=== PATIENT | male | born 1955 | race Caucasian/White ===

== ENCOUNTER → 2017-12-29 | Outpatient (CLI) | payer MEDICARE ==
--- NOTE | 2017-12-29 11:51 | RADIOLOGY REPORT (SQ) ---
EXAM DESCRIPTION: CT ABD/PELVIS WITH IV ONLY COMPLETED DATE/TIME: 12/29/2017 11:26 am REASON FOR STUDY: R10.12 LEFT UPPER QUADRANT PAIN R10.12 LEFT UPPER QUADRANT PAIN COMPARISON: Two-view chest 11/23/2014 TECHNIQUE: CT scan of the abdomen and pelvis performed using helical scanning technique with dynamic intravenous contrast injection. No oral contrast. Images reviewed with lung, soft tissue, and bone windows. Reconstructed coronal and sagittal MPR images reviewed. Delayed images for evaluation of the urinary system also acquired. All images stored on PACS. All CT scanners at this facility use dose modulation, iterative reconstruction, and/or weight based d osing when appropriate to reduce radiation dose to as low as reasonably achievable (ALARA). [facility]: Dose Right [facility]: CareDose [facility]: Dose Right [facility]: Teradose 4D [facility]: WebLayers CONTRAST TYPE AND DOSE: contrast/concentration: Isovue 370.00 mg/ml; Total Contrast Delivered: 100.0 ml; Total Saline Delivered: 72.0 ml RENAL FUNCTION: Creatinine 1.1 RADIATION DOSE: CT Rad equipment meets quality standard of care and radiation dose reduction techniq ues were employed. CTDIvol: NaN - NaN mGy. DLP: 0 mGy-cm.. LIMITATIONS: None. FINDINGS: LOWER CHEST: No significant findings. No nodules or infiltrates. LIVER: Normal size. No masses. No dilated ducts. SPLEEN: Normal size. No focal lesions. PANCREAS: No masses. No significant calcifications. No adjacent inflammation or peripancreatic fluid collections. Pancreatic duct not dilated. GALLBLADDER: No identified stones by CT criteria. No inflammatory changes to suggest cholecystitis. ADRENAL GLANDS: No significant masses or asymmetry. RIGHT KIDNEY AND URETER: No solid masses. No significant calcifications. No hydronephrosis or hyd roureter. LEFT KIDNEY AND URETER: No solid masses. No significant calcifications. No hydronephrosis or hydr oureter. AORTA AND VESSELS: No aneurysm. No dissection. Renal arteries, SMA, celiac without stenosis. RETROPERITONEUM: No retroperitoneal adenopathy, hemorrhage or masses. BOWEL AND PERITONEAL CAVITY: No masses or inflammatory changes. No free fluid or peritoneal masses. APPENDIX: Normal. PELVIS: No mass. No free fluid. Normal bladder. ABDOMINAL WALL: Fat containing bilateral inguinal hernias. BONES: No significant or acute findings. OTHER: No other significant finding. IMPRESSION: NO SIGNIFICANT OR ACUTE FINDING IN THE ABDOMEN OR PELVIS ON CT SCAN WITH IV CONTRAST. TECHNICAL DOCUMENTATION: JOB ID: [id number] Quality ID # [id number]: Final reports with documentation of one or more dose reduction techniques (e.g., Au tomated exposure control, adjustment of the mA and/or kV according to patient size, use of iterative reconstruction technique) 2010 [employer]- All Rights Reserved Reading location - IP/workstation name: [email or web address]
== END ==
LOC: RAD 11:07
PROVIDERS: ATTEND Family Medicine
DX: R10.12 Left upper quadrant pain (principal)
CPT/HCPCS: 74177; 82565

== ENCOUNTER 2018-01-13 09:19 | Emergency (ER) | payer MEDICARE ==
[2018-01-13] MEDS ORDERED: ONDANSETRON HCL INJ/PF 4 MG/2 ML SDV IV ONE (09:41)
[2018-01-13] MEDS ORDERED: FENTANYL CITRATE INJ/PF 100 MCG/2 ML AMPUL IV ONE (09:41)
--- NOTE | 2018-01-13 09:43 | ER Document Report ---
ED Medical Screen (RME) - General Chief Complaint: Abdominal Pain Stated Complaint: STOMACH PAIN Time Seen by Provider: 01/13/18 09:39 Mode of Arrival: Wheelchair Information source: Patient, Dr. Office Notes: 62-year-old male presents with complaints of right upper quadrant abdominal pain 3 week duration. Patient was seen by his primary care physician last week sent for CAT scan which noted no acute abnormality. Patient notes pain is worsened I have greeted and performed a rapid initial assessment of this patient. A comprehensive ED assessment and evaluation of the patient, analysis of test results and completion of the medical decision making process will be conducted by additional ED providers. PHYSICAL EXAMINATION: GENERAL: Well-appearing, well-nourished and in no acute distress. HEAD: Atraumatic, normocephalic. EYES: Pupils equal round extraocular movements intact, conjunctiva are normal. ENT: Nares patent NECK: Normal range of motion LUNGS: No respiratory distress Abdomen: Tender in the right upper quadrant with guarding Musculoskeletal: Normal range of motion NEUROLOGICAL: Normal speech, normal gait. PSYCH: Normal mood, normal affect. SKIN: Warm, Dry, normal turgor, no rashes or lesions noted. TRAVEL OUTSIDE OF THE [place] IN LAST 30 DAYS: No - Related Data Allergies/Adverse Reactions: No Known Allergies Allergy (Verified 01/13/18 09:22) Past Medical History - Past Medical History Cardiac Medical History: Reports: Hx Coronary Artery Disease, Hx Hypercholesterolemia, Hx Hypertension - medicated Denies: Hx Atrial Fibrillation, Hx Congestive Heart Failure, Hx Heart Attack , Hx Peripheral Vascular Disease, Hx Heart Murmur Pulmonary Medical History: Denies: Hx Asthma, Hx Tuberculosis Neurological Medical History: Denies: Hx Cerebrovascular Accident, Hx Seizures Endocrine Medical History: Reports: Hx Diabetes Mellitus Type 2 GI Medical History: Denies: Hx Hepatitis, Hx Hiatal Hernia, Hx Ulcer Musculoskeltal Medical History: Denies Hx Multiple Sclerosis Psychiatric Medical History: Reports: Hx Bipolar Disorder, Hx Depression Denies: Hx Dementia, Hx Post Traumatic Stress Disorder, Hx Schizophrenia Infectious Medical History: Denies: Hx Hepatitis Past Surgical History: Denies: Hx Appendectomy, Hx Bowel Surgery, Hx Cholecystectomy, Hx Coronary Artery Bypass Graft, Hx Gastric Bypass Surgery, Hx Herniorrhaphy, Hx Open Heart Surgery, Hx Pacemaker, Hx Tonsillectomy - Immunizations Hx Diphtheria, Pertussis, Tetanus Vaccination: Yes Physical Exam - Vital signs Vitals: Temp Pulse Resp BP Pulse Ox 96.9 F L 81 22 H 154/67 H 94 01/13/18 09:27 01/13/18 09:27 01/13/18 09:27 01/13/18 09:27 01/13/18 09:27 Course - Vital Signs Vital signs: Temp Pulse Resp BP Pulse Ox 96.9 F L 81 22 H 154/67 H 94 01/13/18 09:27 01/13/18 09:27 01/13/18 09:27 01/13/18 09:27 01/13/18 09:27
[2018-01-13 10:44] LABS: ABSOLUTE BASOPHILS # (AUTO) 0.1 10^3/uL (0.0-0.2); ABSOLUTE EOSINOPHILS # (AUTO) 0.5 10^3/uL (0.0-0.6); ABSOLUTE LYMPHOCYTES (AUTO) 1.7 10^3/uL (0.5-4.7); ABSOLUTE NEUT (AUTO) 9.7 10^3/uL (1.7-8.2); BASOPHILS % (AUTO) 0.6 % (0-2); HEMATOCRIT 46.4 % (37.9-51.0); HEMOGLOBIN 15.4 g/dL (13.5-17.0); LYMPHOCYTES % (AUTO) 13.4 % (13-45); MEAN CORPUSCULAR HGB CONC 33.1 g/dL (32.0-36.0); MEAN CORPUSCULAR VOLUME 97 fl (80-97); MONOCYTES % (AUTO) 7.7 % (3-13); PLATELET COUNT 228 10^3/uL (150-450); RED CELL DISTRIBUTION WIDTH 13.1 % (11.5-14.0); SEGMENTED NEUTROPHILS % (AUTO) 74.3 % (42-78); TOTAL CELLS COUNTED % (AUTO) 100 %; WHITE BLOOD COUNT 13.1 10^3/uL (4.0-10.5)
[2018-01-13 11:03] LABS: ALANINE AMINOTRANSFERASE 97 U/L (21-72); ALBUMIN 4.5 g/dL (3.5-5.0); ALKALINE PHOSPHATASE 124 U/L (38-126); ANION GAP 10 (5-19); ASPARTATE AMINO TRANSFERASE 68 U/L (17-59); BILIRUBIN,DIRECT 0.5 mg/dL (0.0-0.4); BILIRUBIN,TOTAL 0.6 mg/dL (0.2-1.3); BLOOD UREA NITROGEN 27 mg/dL (7-20); CALCIUM 9.7 mg/dL (8.4-10.2); CARBON DIOXIDE 27 mmol/L (22-30); CHLORIDE 104 mmol/L (98-107); GLUCOSE 209 mg/dL (75-110); LIPASE 148.3 U/L (23-300); POTASSIUM 4.7 mmol/L (3.6-5.0); SODIUM 141.3 mmol/L (137-145); TOTAL PROTEIN 7.9 g/dL (6.3-8.2)
--- NOTE | 2018-01-13 11:04 | ER Document Report ---
ED General - General Chief Complaint: Abdominal Pain Stated Complaint: STOMACH PAIN Time Seen by Provider: 01/13/18 09:39 Mode of Arrival: Wheelchair Notes: 62-year-old male to emergency department chief complaint of right upper quadrant abdominal pain. Patient states pain is been present for approximately [address] scan of the abdomen and pelvis at the end of December. Reportedly unremarkable. Continues to have worsening pain in the right upper quadrant. Worse with eating. Denies any rash. No fever, chills, sweats. Does have intermittent constipation. No vomiting or diarrhea. TRAVEL OUTSIDE OF THE [place] IN LAST 30 DAYS: No - HPI Onset/Duration: Gradual Quality of pain: Cramping Severity: Moderate Pain Level: 3 Associated symptoms: Nausea Exacerbated by: Food Relieved by: Denies - Related Data Allergies/Adverse Reactions: No Known Allergies Allergy (Verified 01/13/18 09:22) Past Medical History - General Information source: Patient, Office - Social History Smoking Status: Never Smoker Chew tobacco use (# tins/day): No Frequency of alcohol use: None Drug Abuse: None Lives with: Family Family History: Reviewed & Not Pertinent Patient has suicidal ideation: No Patient has homicidal ideation: No - Past Medical History Cardiac Medical History: Reports: Hx Coronary Artery Disease, Hx Hypercholesterolemia, Hx Hypertension - medicated Denies: Hx Atrial Fibrillation, Hx Congestive Heart Failure, Hx Heart Attack , Hx Peripheral Vascular Disease, Hx Heart Murmur Pulmonary Medical History: Denies: Hx Asthma, Hx Tuberculosis Neurological Medical History: Denies: Hx Cerebrovascular Accident, Hx Seizures Endocrine Medical History: Reports: Hx Diabetes Mellitus Type 2 Renal/ Medical History: Denies: Hx Peritoneal Dialysis GI Medical History: Denies: Hx Hepatitis, Hx Hiatal Hernia, Hx Ulcer Musculoskeltal Medical History: Denies Hx Multiple Sclerosis Psychiatric Medical History: Reports: Hx Bipolar Disorder, Hx Depression Denies: Hx Dementia, Hx Post Traumatic Stress Disorder, Hx Schizophrenia Infectious Medical History: Denies: Hx Hepatitis Past Surgical History: Denies: Hx Appendectomy, Hx Bowel Surgery, Hx Cholecystectomy, Hx Coronary Artery Bypass Graft, Hx Gastric Bypass Surgery, Hx Herniorrhaphy, Hx Open Heart Surgery, Hx Pacemaker, Hx Tonsillectomy - Immunizations Hx Diphtheria, Pertussis, Tetanus Vaccination: Yes Hx Pneumococcal Vaccination: 05/29/13 Review of Systems - Review of Systems Constitutional: denies: Fever, Malaise, Weakness EENT: denies: Double vision, Throat pain, Mouth pain Cardiovascular: denies: Chest pain, Palpitations, Heart racing Respiratory: denies: Cough, Hurts to breathe, Short of breath, Wheezing Gastrointestinal: Abdominal pain, Nausea, Constipation. denies: Diarrhea Male Genitourinary: denies: Testicular pain, Penile discharge Musculoskeletal: denies: Back pain, Gout, Joint pain, Joint swelling Skin: denies: Dryness, Lumps, Rash Hematologic/Lymphatic: denies: Anemia, Blood clots, Easy bleeding, Easy bruising Neurological/Psychological: denies: Confusion, Weakness, Numbness Physical Exam - Vital signs Vitals: Temp Pulse Resp BP Pulse Ox 96.9 F L 81 22 H 154/67 H 94 01/13/18 09:27 01/13/18 09:27 01/13/18 09:27 01/13/18 09:27 01/13/18 09:27 Interpretation: Normal - General General appearance: Appears well, Alert - HEENT Head: Normocephalic, Atraumatic Eyes: Normal Pupils: PERRL - Respiratory Respiratory status: No respiratory distress Chest status: Nontender Breath sounds: Normal Chest palpation: Normal - Cardiovascular Rhythm: Regular Heart sounds: Normal auscultation Murmur: No - Abdominal Inspection: Normal Distension: No distension Bowel sounds: Normal Tenderness: Tender, Newell's sign, Guarding Organomegaly: No organomegaly - Back Back: Normal, Nontender - Extremities General upper extremity: Normal inspection, Nontender, Normal color, Normal ROM , Normal temperature General lower extremity: Normal inspection, Nontender, Normal color, Normal ROM , Normal temperature, Normal weight bearing. No: Pratima's sign - Neurological Neuro grossly intact: Yes Cognition: Normal Orientation: AAOx4 Cando Coma Scale Eye Opening: Spontaneous Cando Coma Scale Verbal: Oriented Cando Coma Scale Motor: Obeys Commands Joaquin Coma Scale Total: 15 Speech: Normal Motor strength normal: LUE, RUE, LLE, RLE Sensory: Normal - Psychological Associated symptoms: Normal affect, Normal mood - Skin Skin Temperature: Warm Skin Moisture: Dry Skin Color: Normal Course - Re-evaluation Re-evalutation: 01/13/18 11:24 Gallbladder ultrasound shows gallstones with no significant signs of acute cholecystitis. Patient is exquisitely tender in the right upper quadrant. Consulted with Dr. Taveras with general surgery. Recommends getting a HIDA scan. Will see patient in the ER as well. 01/13/18 15:04 Hepatobiliary study unremarkable. Asking Dr. Taveras to come see patient as he is still quite tender in the right upper quadrant. 01/13/18 15:53 Patient wants to go home. Will follow up with Dr. Taveras tomorrow. Likely biliary colic. Giving some lactulose at this time. We will give recommendations for some MiraLAX as an outpatient in a couple more days of lactulose. Return if symptoms get worse. She knows that in the next 12-24 hours things get worse. If he develops fever, worsening symptoms he should return - Vital Signs Vital signs: Temp Pulse Resp BP Pulse Ox 96.9 F L 81 22 H 154/67 H 94 01/13/18 09:27 01/13/18 09:27 01/13/18 09:27 01/13/18 09:27 01/13/18 09:27 - Laboratory Result Diagrams: 01/13/18 10:00 01/13/18 10:00 Laboratory results interpreted by me: 01/13/18 01/13/18 10:00 10:00 WBC 13.1 H Absolute Neutrophils 9.7 H BUN 27 H Glucose 209 H Direct Bilirubin 0.5 H AST 68 H ALT 97 H Discharge - Discharge Clinical Impression: Right upper quadrant abdominal pain, Colic, biliary Condition: Good Disposition: HOME, SELF-CARE Instructions: Abdominal Pain ([facility]), Gallbladder Disease ([facility]), Bulk Laxatives, Antinausea Medication ([facility]) Additional Instructions: Symptoms are getting worse in the next 12-24 hours return immediately for repeat exam. Prescriptions: Ondansetron [Zofran Odt] 4 mg PO QID 5 Days #10 tab.rapdis Polyethylene Glycol 3350 [Miralax] 119 gm PO BID 7 Days #1 bot Referrals: RADHA TAVERAS MD [MAGAN HUERTA] - Follow up as needed
--- NOTE | 2018-01-13 11:15 | RADIOLOGY REPORT (SQ) ---
EXAM DESCRIPTION: U/S ABDOMEN LIMITED W/O DOP COMPLETED DATE/TIME: 01/13/2018 11:05 am REASON FOR STUDY: RUQ pain COMPARISON: None. TECHNIQUE: Dynamic and static grayscale images acquired of the right upper quadrant and recorded on PACS. Additional selected color Doppler and spectral images recorded. LIMITATIONS: Study limited due to acoustical interference from fat or from air in the bowel. FINDINGS: PANCREAS: Parts of the pancreas poorly seen secondary to acoustical interference from fat or from air in the bowel. LIVER: Echotexture is coarse with increased echogenicity consistent with fatty infiltration. No mass es. LIVER VASCULATURE: Normal directional flow of the main portal vein and hepatic veins. GALLBLADDER: Gallstone(s). No pericholecystic fluid. No wall thickening. ULTRASOUND-DETECTED SHRESTHA'S SIGN: Negative. INTRAHEPATIC DUCTS AND COMMON DUCT: CBD and intrahepatic ducts normal caliber. No filling defects. INFERIOR VENA CAVA: Normal flow. AORTA: No aneurysm. RIGHT KIDNEY: Normal size. Normal echogenicity. No solid or suspicious masses. No hydronephrosis. No calcifications. PERITONEAL CAVITY AND RIGHT PLEURAL SPACE: No ascites or effusions. OTHER: No other significant finding. IMPRESSION: 1. LIMITED STUDY. GALLSTONES. NO ACUTE FINDINGS. 2. FATTY LIVER. PANCREAS PARTIALLY OBSCURED. OTHERWISE NORMAL RIGHT UPPER QUADRANT ULTRASOUND. TECHNICAL DOCUMENTATION: JOB ID: [id number]- All Rights Reserved Reading location - IP/workstation name: [facility]
--- NOTE | 2018-01-13 14:57 | RADIOLOGY REPORT (SQ) ---
EXAM DESCRIPTION: NM HIDA SCAN COMPLETED DATE/TIME: 01/13/2018 2:47 pm REASON FOR STUDY: RUQ pain, hx of gallstones COMPARISON: Gallbladder ultrasound dated 01/13/2018. RADIONUCLIDE AND DOSE: DOSAGE RADIONUCLIDE: 5.46 millicuries Tc99m Mebrofenin. DOSAGE MORPHINE: Not required. The route of agent administration: Intravenous TECHNIQUE: Serial imaging right upper quadrant up to 60 minutes following injection of radionuclide. Delayed images at cine 5 minutes and 90 minutes. Patient imaged AP and Right Lateral. LIMITATIONS: None. FINDINGS: LIVER: Normal visualization without areas of photopenia. INTRA-HEPATIC BILE DUCTS: Temporal visualization normal. No dilatation. COMMON BILE DUCT: Normal without dilatation or delayed visualization. GALLBLADDER: Normal visualization. OTHER: No other significant finding. IMPRESSION: NORMAL STUDY WITHOUT CYSTIC OR COMMON DUCT OBSTRUCTION. TECHNICAL DOCUMENTATION: JOB ID: [id number] [employer]- All Rights Reserved Reading location - IP/workstation name: [facility]
[2018-01-13] MEDS ORDERED: LACTULOSE SYRUP 20 GM/30 ML UDCUP PO ONE (15:50)
[2018-01-13] MEDS ORDERED: HYDROCODONE/ACETAMINOPHEN 5-325 MG (6 TAB/ER DISP) PO PRN (16:36)
[2018-01-13 16:52] VITALS: BP 138/84
== END 2018-01-13 16:52 | disposition home or self-care (01) ==
LOC: ER 09:19
DX: K80.20 Calculus of gallbladder without cholecystitis without obstruction (principal); K59.00 Constipation, unspecified; R10.11 Right upper quadrant pain; R11.0 Nausea; I25.10 Atherosclerotic heart disease of native coronary artery without angina pectoris; I10 Essential (primary) hypertension; E11.9 Type 2 diabetes mellitus without complications; Z90.49 Acquired absence of other specified parts of digestive tract; Z95.1 Presence of aortocoronary bypass graft
CPT/HCPCS: 99284; 96374; 96375; 36415; 83690; 85025; 80053; 76705; 78226; A9537; J3010; J2405; A9270; Q9969

== ENCOUNTER 2018-01-22 19:12 | Inpatient (IN) | payer MEDICARE ==
[2018-01-22] MEDS ORDERED: MORPHINE SULFATE 10 MG/ML INJ IV ONE (20:14)
[2018-01-22] MEDS ORDERED: NORMAL SALINE 1000 ML 1,000 ML IV ONE ×2 (20:14→23:39)
[2018-01-22] MEDS ORDERED: ONDANSETRON HCL INJ/PF 4 MG/2 ML SDV IV ONE ×2 (20:15→21:50)
--- NOTE | 2018-01-22 20:23 | ER Document Report ---
ED GI/ - General Chief Complaint: Abdominal Pain Stated Complaint: ABDOMINAL PAIN Time Seen by Provider: 01/22/18 20:05 Notes: Patient is a 62-year-old male comes emergency department for chief complaint of upper abdominal pain, he states the pain is in his right upper abdomen, pain started after breakfast this morning and has continued to be sharp and persisted all day. He states he tried to eat a little bit of lunch but pain continued and he has no appetite. He denies vomiting but he feels nauseated. He denies fever or chills. He was evaluated already, he is supposed to have a preop tomorrow with [facility] and is scheduled to have a cholecystectomy on Friday. He denies alcohol, smoking, past medical history of hypertension, insulin-dependent diabetes, hyperlipidemia. TRAVEL OUTSIDE OF THE [place] IN LAST 30 DAYS: No - Related Data Allergies/Adverse Reactions: No Known Allergies Allergy (Verified 01/22/18 09:43) Past Medical History - General Information source: Patient - Social History Smoking Status: Former Smoker Frequency of alcohol use: None Drug Abuse: None Lives with: Family Family History: Reviewed & Not Pertinent - Past Medical History Cardiac Medical History: Reports: Hx Coronary Artery Disease - HIGH CHOLESTEROL , Hx Hypercholesterolemia, Hx Hypertension Denies: Hx Atrial Fibrillation, Hx Congestive Heart Failure, Hx Heart Attack , Hx Peripheral Vascular Disease, Hx Heart Murmur Pulmonary Medical History: Reports: Hx COPD Denies: Hx Asthma, Hx Bronchitis, Hx Pneumonia, Hx Tuberculosis Neurological Medical History: Denies: Hx Cerebrovascular Accident, Hx Seizures Endocrine Medical History: Reports: Hx Diabetes Mellitus Type 2 Renal/ Medical History: Denies: Hx Peritoneal Dialysis GI Medical History: Denies: Hx Hepatitis, Hx Hiatal Hernia, Hx Ulcer Musculoskeltal Medical History: Denies Hx Arthritis, Denies Hx Multiple Sclerosis Psychiatric Medical History: Reports: Hx Bipolar Disorder, Hx Depression Denies: Hx Dementia, Hx Post Traumatic Stress Disorder, Hx Schizophrenia Infectious Medical History: Denies: Hx Hepatitis Past Surgical History: Denies: Hx Appendectomy, Hx Bowel Surgery, Hx Cholecystectomy, Hx Coronary Artery Bypass Graft, Hx Gastric Bypass Surgery, Hx Herniorrhaphy, Hx Open Heart Surgery, Hx Pacemaker, Hx Tonsillectomy - Immunizations Hx Diphtheria, Pertussis, Tetanus Vaccination: Yes Hx Pneumococcal Vaccination: 05/29/13 Review of Systems - Review of Systems Constitutional: No symptoms reported EENT: No symptoms reported Cardiovascular: No symptoms reported Respiratory: No symptoms reported Gastrointestinal: See HPI Genitourinary: No symptoms reported Male Genitourinary: No symptoms reported Musculoskeletal: No symptoms reported Skin: No symptoms reported Hematologic/Lymphatic: No symptoms reported Neurological/Psychological: No symptoms reported Physical Exam - Vital signs Vitals: Temp Pulse Resp BP Pulse Ox 97.4 F 79 16 139/62 H 94 01/22/18 19:31 01/22/18 19:31 01/22/18 19:31 01/22/18 19:31 01/22/18 19:31 Interpretation: Normal - General General appearance: Appears well, Alert In distress: Mild - Patient shifting on the into the bed uncomfortably, appears to be in some pain - HEENT Head: Normocephalic, Atraumatic Eyes: Normal Pupils: PERRL - Respiratory Respiratory status: No respiratory distress Chest status: Nontender Breath sounds: Normal. No: Decreased air movement, Wheezing Chest palpation: Normal - Cardiovascular Rhythm: Regular. No: Tachycardia Heart sounds: Normal auscultation, S1 appreciated, S2 appreciated Murmur: No - Abdominal Inspection: Normal Distension: No distension Bowel sounds: Normal Tenderness: Tender - Patient tender in epigastric and right upper quadrant areas , he has significant tenderness with guarding in these areas. Lower abdomen is benign and unremarkable, Newell's sign, Guarding Organomegaly: No organomegaly - Back Back: Normal, Nontender. No: Tender - Extremities General upper extremity: Normal inspection, Nontender, Normal strength, Normal temperature General lower extremity: Normal inspection, Nontender, Normal strength, Normal temperature. No: Edema - Neurological Neuro grossly intact: Yes Cognition: Normal Orientation: AAOx4 Joaquin Coma Scale Eye Opening: Spontaneous Joaquin Coma Scale Verbal: Oriented Joaquin Coma Scale Motor: Obeys Commands [place] Coma Scale Total: 15 Speech: Normal Motor strength normal: LUE, RUE, LLE, RLE Sensory: Normal - Psychological Associated symptoms: Normal affect, Normal mood - Skin Skin Temperature: Warm Skin Moisture: Dry Skin Color: Normal Course - Re-evaluation Re-evalutation: Patient initially uncomfortable, has guarding in the epigastric area and right upper quadrant. CBC shows minimal leukocytosis, no left shift or bandemia. Chemistry shows elevating LFTs into the 100s now, lipase is mildly elevated in the 500s, however bilirubin is normal. Patient is scheduled to have surgery with Dr. Morton on 01/26/2018. Ultrasound performed to evaluate labs and presentation, however this is nonspecific. No obvious evidence of ductal widening, no pericholecystic fluid or gallbladder wall thickening, show some sludge and stones are not definitely seen. Stones were seen on previous ultrasound about 10 days ago. No overt cholecystitis, choledocholithiasis. Patient has been kept n.p.o., has been provided pain medicine and IV fluids. Patient is much more comfortable on reevaluation's, although he is drying oven tender on exam. Discussed with Dr. Weinberg, surgery on-call, he states he will come evaluate the patient. Patient admitted to the surgical service. - Vital Signs Vital signs: Temp Pulse Resp BP Pulse Ox 97.4 F 79 18 139/74 H 96 01/22/18 19:31 01/22/18 19:31 01/23/18 00:28 01/23/18 00:28 01/23/18 00:27 - Laboratory Result Diagrams: 01/22/18 20:30 01/22/18 20:30 Laboratory results interpreted by me: 01/22/18 01/22/18 20:30 20:30 WBC 11.7 H Eosinophils % 6.3 H Absolute Eosinophils 0.7 H BUN 29 H Creatinine 1.28 H Est GFR (Non-Af Amer) 57 L Glucose 189 H AST 116 H ALT 141 H Lipase 537.1 H Discharge - Discharge Clinical Impression: Right upper quadrant pain, Epigastric pain Condition: Stable Disposition: ADMITTED INPATIENT Admitting Provider: Surgicalist Unit Admitted: Surgical Floor
[2018-01-22 20:50] LABS: ABSOLUTE BASOPHILS # (AUTO) 0.1 10^3/uL (0.0-0.2); ABSOLUTE EOSINOPHILS # (AUTO) 0.7 10^3/uL (0.0-0.6); ABSOLUTE LYMPHOCYTES (AUTO) 2.4 10^3/uL (0.5-4.7); ABSOLUTE NEUT (AUTO) 7.4 10^3/uL (1.7-8.2); BASOPHILS % (AUTO) 1.1 % (0-2); EOSINOPHILS % (AUTO) 6.3 % (0-6); HEMOGLOBIN 14.5 g/dL (13.5-17.0); LYMPHOCYTES % (AUTO) 20.7 % (13-45); MEAN CORPUSCULAR HEMOGLOBIN 32.2 pg (27.0-33.4); MEAN CORPUSCULAR HGB CONC 33.7 g/dL (32.0-36.0); MEAN CORPUSCULAR VOLUME 96 fl (80-97); MONOCYTES % (AUTO) 8.2 % (3-13); PLATELET COUNT 211 10^3/uL (150-450); RED CELL DISTRIBUTION WIDTH 13.1 % (11.5-14.0); SEGMENTED NEUTROPHILS % (AUTO) 63.7 % (42-78); TOTAL CELLS COUNTED % (AUTO) 100 %; WHITE BLOOD COUNT 11.7 10^3/uL (4.0-10.5)
[2018-01-22 21:15] LABS: ALANINE AMINOTRANSFERASE 141 U/L (21-72); ALBUMIN 4.3 g/dL (3.5-5.0); ALKALINE PHOSPHATASE 125 U/L (38-126); ANION GAP 11 (5-19); ASPARTATE AMINO TRANSFERASE 116 U/L (17-59); BILIRUBIN,DIRECT 0.1 mg/dL (0.0-0.4); BILIRUBIN,TOTAL 0.2 mg/dL (0.2-1.3); BLOOD UREA NITROGEN 29 mg/dL (7-20); CALCIUM 10.1 mg/dL (8.4-10.2); CARBON DIOXIDE 25 mmol/L (22-30); CHLORIDE 104 mmol/L (98-107); GLUCOSE 189 mg/dL (75-110); LIPASE 537.1 U/L (23-300); POTASSIUM 4.9 mmol/L (3.6-5.0); SODIUM 140.2 mmol/L (137-145); TOTAL PROTEIN 7.2 g/dL (6.3-8.2)
[2018-01-22] MEDS ORDERED: HYDROMORPHONE HCL INJ/PF 2 MG/ML AMPULE IV ONE (21:50)
--- NOTE | 2018-01-22 23:15 | RADIOLOGY REPORT (SQ) ---
EXAM DESCRIPTION: U/S ABDOMEN LIMITED W/O DOP COMPLETED DATE/TIME: 01/22/2018 9:49 pm REASON FOR STUDY: severe RUQ pain COMPARISON: 01/13/2018 TECHNIQUE: Dynamic and static grayscale images acquired of the right upper quadrant and recorded on PACS. Additional selected color Doppler and spectral images recorded. LIMITATIONS: Study limited due to acoustical interference from fat or from air in the bowel. FINDINGS: PANCREAS: Parts or all of the pancreas poorly seen secondary to acoustical interference fr om fat or from air in the bowel. LIVER: Echotexture is coarse with increased echogenicity consistent with fatty infiltration. No mass es. LIVER VASCULATURE: Normal directional flow of the main portal vein and hepatic veins. GALLBLADDER: No shadowing gallstones identified. Mild sludge -nonshadowing stones. Normal wall thick ness. No pericholecystic fluid. ULTRASOUND-DETECTED SHRESTHA'S SIGN: Reported positive INTRAHEPATIC DUCTS AND COMMON DUCT: CBD and intrahepatic ducts normal caliber. No filling defects. INFERIOR VENA CAVA: Normal flow. AORTA: No aneurysm. RIGHT KIDNEY: Normal size. Normal echogenicity. No solid or suspicious masses. No hydronephros is. No calcifications. PERITONEAL CAVITY AND RIGHT PLEURAL SPACE: No ascites or effusions. OTHER: No other significant finding. IMPRESSION: No shadowing gallstones identified. Mild sludge -nonshadowing stones. Normal wall thi ckness. No pericholecystic fluid.ULTRASOUND-DETECTED SHRESTHA'S SIGN: Reported positive TECHNICAL DOCUMENTATION: JOB ID: [id number] 2010 [employer]- All Rights Reserved Reading location - IP/workstation name: [facility]
[2018-01-22] MEDS ORDERED: GLUCAGON,HUMAN RECOMB 1 MG INJ IM PRN (23:50)
[2018-01-22] MEDS ORDERED: DEXTROSE 40% GEL 15 GM TUBE PO PRN ×2 (23:50)
[2018-01-22] MEDS ORDERED: DEXTROSE 50%-WATER 25 GM/50 ML DISP.SYRIN IV PRN ×2 (23:50)
--- NOTE | 2018-01-23 00:18 | PDOC H&P ---
History of Present Illness Admission Date/PCP: SARY SCALES MD Patient complains of: Abdominal pain History of Present Illness: REI WILSON is a 62 year old male with diabetes with several week history of intermittent right upper quadrant abdominal pain. Noted with gallstones on prior ultrasound and schedule for a laparoscopic cholecystectomy next week. However he developed acute onset of severe epigastric abdominal pain along with right upper quadrant abdominal pain that was somewhat different from his prior episodes. Patient denies any history of jaundice. He has had some nausea but no emesis. No fever. Some loose bowel movements. With the severity of these pain he came into the ER today. Patient denies any history of alcohol abuse. Past Medical History Cardiac Medical History: Reports: Coronary Artery Disease - cardiac catheterization over 20 years ago, no cardiac issues since, Hyperlipidema, Hypertension Denies: Atrial Fibrillation, Congestive Heart Failure, Myocardial Infarction , Peripheral Vascular Disease, Heart Murmur Pulmonary Medical History: Reports: Chronic Obstructive Pulmonary Disease (COPD) Denies: Asthma, Bronchitis, Pneumonia, Tuberculosis Neurological Medical History: Denies: Seizures Endocrine Medical History: Reports: Diabetes Mellitus Type 2 GI Medical History: Denies: Hepatitis, Hiatal Hernia Musculoskeltal Medical History: Denies: Arthritis Psychiatric Medical History: Reports: Bipolar Disorder, Depression Denies: Dementia, Post Traumatic Stress Disorder Hematology: Denies: Anemia, Sickle Cell Disease Past Surgical History Past Surgical History: Denies: Appendectomy, Cholecystectomy, Coronary Artery Bypass Graft, Gastric Bypass Surgery, Herniorrhaphy, Pacemaker, Tonsillectomy Social History Lives with: Family Smoking Status: Former Smoker Frequency of Alcohol Use: Rare Hx Recreational Drug Use: No Hx Prescription Drug Abuse: No Family History Family History: Reviewed & Not Pertinent Parental Family History Reviewed: No Children Family History Reviewed: No Sibling(s) Family History Reviewed.: No Medication/Allergy Home Medications: Insulin NPH Hum/Reg Insulin Hm [Humulin 70/30 Kwikpen] 60 unit SQ [id number] 08/07 Insulin NPH Hum/Reg Insulin Hm [Humulin 70/30 Kwikpen] 60 units SUBCUT ACSUPPER 08/07/14 Lisinopril 40 mg PO DAILY 08/07/14 Metformin HCl [Glucophage] 1,000 mg PO BIDACBL 08/07/14 Pravastatin Sodium [Pravachol] 20 mg PO DAILY 08/07/14 Carvedilol [Coreg 3.125 mg Tablet] 3.125 mg PO Q12 #30 tablet 08/09/14 Allergies/Adverse Reactions: No Known Allergies Allergy (Verified 01/22/18 09:43) Physical Exam Vital Signs: Temp Pulse Resp BP Pulse Ox 97.4 F 79 20 123/69 96 01/22/18 19:31 01/22/18 19:31 01/22/18 21:53 01/22/18 23:01 01/22/18 23:01 Intake & Output 01/21/18 01/22/18 01/23/18 06:59 06:59 06:59 Weight 115.666 kg General appearance: PRESENT: no acute distress, cooperative Eye exam: PRESENT: conjunctiva pink Neck exam: PRESENT: other - Supple with no masses Respiratory exam: PRESENT: clear to auscultation robles Cardiovascular exam: PRESENT: RRR GI/Abdominal exam: PRESENT: other - Soft, mildly distended, tenderness across his upper abdomen without peritoneal signs. Extremities exam: PRESENT: other - No swelling Neurological exam: PRESENT: alert, awake Psychiatric exam: PRESENT: appropriate affect Skin exam: PRESENT: warm Results Laboratory Results: 01/22/18 20:30 01/22/18 20:30 01/22/18 01/22/18 20:30 20:30 WBC 11.7 H RBC 4.50 Hgb 14.5 Hct 43.0 MCV 96 MCH 32.2 MCHC 33.7 RDW 13.1 Plt Count 211 Seg Neutrophils % 63.7 Lymphocytes % 20.7 Monocytes % 8.2 Eosinophils % 6.3 H Basophils % 1.1 Absolute Neutrophils 7.4 Absolute Lymphocytes 2.4 Absolute Monocytes 1.0 Absolute Eosinophils 0.7 H Absolute Basophils 0.1 Sodium 140.2 Potassium 4.9 Chloride 104 Carbon Dioxide 25 Anion Gap 11 BUN 29 H Creatinine 1.28 H Est GFR ( Amer) > 60 Est GFR (Non-Af Amer) 57 L Glucose 189 H Calcium 10.1 Total Bilirubin 0.2 AST 116 H ALT 141 H Alkaline Phosphatase 125 Total Protein 7.2 Albumin 4.3 Lipase 537.1 H Impressions: Abdomen Ultrasound 01/22/18 20:15 IMPRESSION: No shadowing gallstones identified. Mild sludge -nonshadowing stones. Normal wall thickness. No pericholecystic fluid.ULTRASOUND-DETECTED NEWELL'S SIGN: Reported positive Assessment & Plan - Diagnosis (1) Pancreatitis Qualifiers: Chronicity: acute Is this a current diagnosis for this admission?: Yes Plan: Unclear etiology possible biliary pancreatitis. Will admit the patient placed on bowel rest and IV fluids. Will obtain triglyceride level and MRCP. Once his pancreatitis has improved we will plan laparoscopic cholecystectomy. (2) Cholecystitis Is this a current diagnosis for this admission?: Yes Plan: Patient with history of gallstones on prior ultrasound. Patient with sludge on current ultrasound with sonographic Newell sign. Patient with tenderness in the right upper quadrant. Patient would benefit from laparoscopic cholecystectomy during this admission.
[2018-01-23] MEDS ORDERED: AMPICILLIN SOD/SULBACTAM 3 GM VIAL IV PRN (00:21)
[2018-01-23] MEDS: AMPICILLIN SODIUM/SULBACTAM NA 3 GM in NORMAL SALINE 100 ML IV SCH ×5 (00:45→23:52)
[2018-01-23] MEDS: NORMAL SALINE 1000 ML 1,000 ML IV PRN ×2 (00:46→12:03)
[2018-01-23] MEDS: ONDANSETRON HCL INJ/PF 4 MG/2 ML SDV IV PRN ×5 (03:01→16:24)
[2018-01-23] MEDS: HYDROMORPHONE HCL INJ/PF 2 MG/ML AMPULE IV PRN ×6 (03:01→20:12)
[2018-01-23 03:48] LABS: HEMATOCRIT 41.8 % (37.9-51.0); HEMOGLOBIN 14.1 g/dL (13.5-17.0); MEAN CORPUSCULAR HEMOGLOBIN 32.1 pg (27.0-33.4); MEAN CORPUSCULAR HGB CONC 33.7 g/dL (32.0-36.0); MEAN CORPUSCULAR VOLUME 95 fl (80-97); PLATELET COUNT 181 10^3/uL (150-450); RED BLOOD COUNT 4.39 10^6/uL (4.35-5.55); RED CELL DISTRIBUTION WIDTH 12.9 % (11.5-14.0); WHITE BLOOD COUNT 11.8 10^3/uL (4.0-10.5)
[2018-01-23 03:59] LABS: ALANINE AMINOTRANSFERASE 135 U/L (21-72); ALBUMIN 3.7 g/dL (3.5-5.0); ALKALINE PHOSPHATASE 111 U/L (38-126); ANION GAP 10 (5-19); ASPARTATE AMINO TRANSFERASE 115 U/L (17-59); BILIRUBIN,DIRECT 0.2 mg/dL (0.0-0.4); BILIRUBIN,TOTAL 0.4 mg/dL (0.2-1.3); BLOOD UREA NITROGEN 26 mg/dL (7-20); CALCIUM 9.3 mg/dL (8.4-10.2); CARBON DIOXIDE 22 mmol/L (22-30); CHLORIDE 110 mmol/L (98-107); GLUCOSE 141 mg/dL (75-110); LIPASE 1562.6 U/L (23-300); POTASSIUM 4.6 mmol/L (3.6-5.0); SODIUM 142.4 mmol/L (137-145); TOTAL PROTEIN 6.6 g/dL (6.3-8.2); TRIGLYCERIDES 224 mg/dL (<150)
[2018-01-23] MEDS: INSULIN REG, HUMAN 100 UNIT/ML 3 ML VIAL (PYX) SUBCUT PRN (07:31)
[2018-01-23] MEDS: ENOXAPARIN SODIUM INJ 40 MG/0.4 ML DISP.SYRIN SUBCUT SCH (09:22)
[2018-01-23] MEDS: LISINOPRIL 10 MG TABLET PO SCH (09:22)
[2018-01-23] MEDS: ATORVASTATIN CALCIUM 10 MG TABLET PO SCH (09:22)
[2018-01-23] MEDS: CARVEDILOL 3.125 MG TABLET PO SCH ×2 (11:53→21:40)
[2018-01-23] MEDS ORDERED: GLYCOPYRROLATE INJ 0.4 MG/2 ML VIAL ONE (12:01)
[2018-01-23] MEDS ORDERED: DEXAMETHASONE SOD PHOSPHATE INJ 4 MG/1 ML VIAL ONE (12:01)
[2018-01-23] MEDS ORDERED: METOCLOPRAMIDE HCL INJ/PF 10 MG/2 ML SDV ONE (12:01)
[2018-01-23] MEDS ORDERED: ROCURONIUM BROMIDE INJ 50 MG/5 ML VIAL IV ONE (12:01)
[2018-01-23] MEDS ORDERED: NEOSTIGMINE METHYLSULFATE 10 MG/10 ML VIAL ONE (12:01)
[2018-01-23] MEDS ORDERED: LIDOCAINE 2% INJ-PF (20 MG/ML) 2 ML AMPUL ONE (12:01)
[2018-01-23] MEDS ORDERED: ONDANSETRON HCL INJ/PF 4 MG/2 ML SDV ONE (12:01)
--- NOTE | 2018-01-23 16:23 | RADIOLOGY REPORT (SQ) ---
EXAM DESCRIPTION: MRI ABDOMEN WITHOUT COMPLETED DATE/TIME: 01/23/2018 1:25 pm REASON FOR STUDY: MRCP/ pancreatitis,cholecystitis COMPARISON: CT abdomen pelvis 12/29/2017 Abdominal ultrasound 01/13/2018 Hepatobiliary scan 01/13/2018 Abdominal ultrasound 01/22/2018 TECHNIQUE: Noncontrast MRCP. Source and MIP images reviewed. LIMITATIONS: None. FINDINGS: GALLBLADDER: Normal. INTRAHEPATIC DUCTS: Nondilated. EXTRAHEPATIC DUCTS: Common duct is normal caliber. No dilatation of the pancreatic duct. No ductal filling defects noted. PANCREAS: Generally homogeneous, no gross mass or significant signal alteration. No surrounding infl ammatory changes or fluid. Pancreatic duct is normal diameter. Several small diverticuli off the schwartz creatic duct are seen along the uncinate process and pancreatic body and tail. LIVER, SPLEEN, KIDNEYS, ADRENALS: No significant abnormality. VESSELS: No evidence of aneurysm. Grossly appropriate flow voids in the major vascular structures. LUNG BASES: Not well seen OTHER: No other significant finding. IMPRESSION: No gallstones. No biliary ductal dilatation. No pancreatic ductal dilatation. Few small pancreatic duct diverticuli or sacculations along the unc inate process, pancreatic body and tail. TECHNICAL DOCUMENTATION: JOB ID: [id number] [employer]- All Rights Reserved Reading location - IP/workstation name: [email or web address]
--- NOTE | 2018-01-23 19:53 | PDOC PROGRESS REPORT ---
Subjective Progress Note for:: 01/23/18 Subjective:: Still has significant epigastric pain. Reason For Visit: PANCREATITIS, CHOLECYSTITIS Physical Exam Vital Signs: Temp Pulse Resp BP Pulse Ox 98.0 F 67 18 137/59 H 94 01/23/18 16:00 01/23/18 16:00 01/23/18 16:00 01/23/18 16:00 01/23/18 16:00 Intake & Output 01/22/18 01/23/18 01/24/18 06:59 06:59 06:59 Intake Total 900 Balance 900 Weight 117.5 kg General appearance: PRESENT: obese Head exam: PRESENT: atraumatic, normocephalic Respiratory exam: PRESENT: clear to auscultation robles. ABSENT: rales, rhonchi, wheezes Cardiovascular exam: PRESENT: RRR. ABSENT: diastolic murmur, rubs, systolic murmur GI/Abdominal exam: PRESENT: normal bowel sounds, tenderness - epigastric Neurological exam: PRESENT: alert, awake, oriented to person, oriented to place , oriented to time, oriented to situation, CN II-XII grossly intact. ABSENT: motor sensory deficit Results Laboratory Results: 01/23/18 03:31 01/23/18 03:31 01/23/18 01/23/18 03:31 03:31 WBC 11.8 H RBC 4.39 Hgb 14.1 Hct 41.8 MCV 95 MCH 32.1 MCHC 33.7 RDW 12.9 Plt Count 181 Sodium 142.4 Potassium 4.6 Chloride 110 H Carbon Dioxide 22 Anion Gap 10 BUN 26 H Creatinine 1.01 Est GFR ( Amer) > 60 Est GFR (Non-Af Amer) > 60 Glucose 141 H Calcium 9.3 Total Bilirubin 0.4 AST 115 H ALT 135 H Alkaline Phosphatase 111 Total Protein 6.6 Albumin 3.7 Triglycerides 224 H Lipase 1562.6 H Impressions: Abdomen Ultrasound 01/22/18 20:15 IMPRESSION: No shadowing gallstones identified. Mild sludge -nonshadowing stones. Normal wall thickness. No pericholecystic fluid.ULTRASOUND-DETECTED SHRESTHA'S SIGN: Reported positive Abdomen MRI 01/23/18 00:00 IMPRESSION: No gallstones. No biliary ductal dilatation. No pancreatic ductal dilatation. Few small pancreatic duct diverticuli or sacculations along the uncinate process, pancreatic body and tail. Assessment & Plan - Diagnosis (1) Acute biliary pancreatitis without infection or necrosis Is this a current diagnosis for this admission?: Yes Plan: Lipase was up today to 1562 from 500s yesterday Will await resolution of pancreatitis before scheduling lap cholecystectomy. Discussed plan with the patient to his understanding.
--- NOTE | 2018-01-23 21:48 | EKG REPORT ---
SEVERITY:- BORDERLINE ECG - SINUS RHYTHM LEFT AXIS DEVIATION CONSIDER ANTERIOR INFARCT : Confirmed by: Cheryl Wolfe 23-Jan-2018 21:48:04
[2018-01-24] MEDS: HYDROMORPHONE HCL INJ/PF 2 MG/ML AMPULE IV PRN (00:51)
[2018-01-24] MEDS: AMPICILLIN SODIUM/SULBACTAM NA 3 GM in NORMAL SALINE 100 ML IV SCH ×3 (05:44→17:48)
[2018-01-24] MEDS: ENOXAPARIN SODIUM INJ 40 MG/0.4 ML DISP.SYRIN SUBCUT SCH (09:47)
[2018-01-24] MEDS: CARVEDILOL 3.125 MG TABLET PO SCH ×2 (09:48→21:59)
[2018-01-24] MEDS: ATORVASTATIN CALCIUM 10 MG TABLET PO SCH (09:49)
[2018-01-24] MEDS: LISINOPRIL 10 MG TABLET PO SCH (09:52)
[2018-01-24 12:29] LABS: ALANINE AMINOTRANSFERASE 107 U/L (21-72); ALBUMIN 3.9 g/dL (3.5-5.0); ALKALINE PHOSPHATASE 104 U/L (38-126); ANION GAP 11 (5-19); ASPARTATE AMINO TRANSFERASE 74 U/L (17-59); BILIRUBIN,DIRECT 0.2 mg/dL (0.0-0.4); BILIRUBIN,TOTAL 0.4 mg/dL (0.2-1.3); BLOOD UREA NITROGEN 18 mg/dL (7-20); CALCIUM 9.4 mg/dL (8.4-10.2); CARBON DIOXIDE 22 mmol/L (22-30); CHLORIDE 108 mmol/L (98-107); GLUCOSE 170 mg/dL (75-110); POTASSIUM 4.7 mmol/L (3.6-5.0); SODIUM 141.3 mmol/L (137-145); TOTAL PROTEIN 6.7 g/dL (6.3-8.2)
--- NOTE | 2018-01-24 13:39 | PDOC PROGRESS REPORT ---
Subjective Progress Note for:: 01/24/18 Subjective:: No more abdominal pain. Lipase has normalized. Reason For Visit: PANCREATITIS, CHOLECYSTITIS Physical Exam Vital Signs: Temp Pulse Resp BP Pulse Ox 97.8 F 77 20 147/63 H 98 01/24/18 11:12 01/24/18 11:12 01/24/18 11:12 01/24/18 11:12 01/24/18 11:12 Intake & Output 01/23/18 01/24/18 01/25/18 06:59 06:59 06:59 Intake Total 2100 Balance 2100 Weight 117.5 kg 116 kg General appearance: PRESENT: no acute distress, morbidly obese Respiratory exam: PRESENT: clear to auscultation robles. ABSENT: rales, rhonchi, wheezes Cardiovascular exam: PRESENT: RRR. ABSENT: diastolic murmur, rubs, systolic murmur GI/Abdominal exam: PRESENT: normal bowel sounds, soft. ABSENT: distended, guarding, mass, organolmegaly, rebound, tenderness Neurological exam: PRESENT: alert, awake, oriented to person, oriented to place , oriented to time, oriented to situation, CN II-XII grossly intact. ABSENT: motor sensory deficit Results Laboratory Results: 01/23/18 03:31 01/24/18 11:28 01/24/18 11:28 Sodium 141.3 Potassium 4.7 Chloride 108 H Carbon Dioxide 22 Anion Gap 11 BUN 18 Creatinine 0.95 Est GFR ( Amer) > 60 Est GFR (Non-Af Amer) > 60 Glucose 170 H Calcium 9.4 Total Bilirubin 0.4 AST 74 H ALT 107 H Alkaline Phosphatase 104 Total Protein 6.7 Albumin 3.9 Lipase 83.0 Impressions: Abdomen Ultrasound 01/22/18 20:15 IMPRESSION: No shadowing gallstones identified. Mild sludge -nonshadowing stones. Normal wall thickness. No pericholecystic fluid.ULTRASOUND-DETECTED SHRESTHA'S SIGN: Reported positive Abdomen MRI 01/23/18 00:00 IMPRESSION: No gallstones. No biliary ductal dilatation. No pancreatic ductal dilatation. Few small pancreatic duct diverticuli or sacculations along the uncinate process, pancreatic body and tail. Assessment & Plan - Diagnosis (1) Acute biliary pancreatitis without infection or necrosis Is this a current diagnosis for this admission?: Yes - Plan Summary Plan Summary: For laparoscopic cholecystectomy tomorrow or Friday.
[2018-01-24] MEDS: NORMAL SALINE 1000 ML 1,000 ML IV PRN (15:09)
[2018-01-24] MEDS ORDERED: ACETAMINOPHEN 325 MG TABLET PO PRN (18:29)
[2018-01-24] MEDS: ONDANSETRON HCL INJ/PF 4 MG/2 ML SDV IV PRN (20:43)
[2018-01-25] MEDS: AMPICILLIN SODIUM/SULBACTAM NA 3 GM in NORMAL SALINE 100 ML IV SCH ×2 (00:35→05:36)
[2018-01-25] MEDS: NORMAL SALINE 1000 ML 1,000 ML IV PRN ×3 (00:36→23:41)
[2018-01-25] MEDS ORDERED: MIDAZOLAM 2 MG/2 ML INJ ONE (07:15)
[2018-01-25] MEDS ORDERED: ACETAMINOPHEN 100 ML IV ONE (07:15)
[2018-01-25] MEDS ORDERED: PROPOFOL INJ 200 MG/20 ML VIAL IV ONE (07:15)
[2018-01-25] MEDS ORDERED: FENTANYL CITRATE INJ/PF 250 MCG/5 ML AMPULE ONE ×2 (07:15→09:42)
[2018-01-25] MEDS ORDERED: DEXMEDETOMIDINE INJ 80 MCG/20 ML VIAL IV ONE (07:16)
[2018-01-25] MEDS ORDERED: LIDOCAINE 1% INJ-PF (10 MG/ML) 30 ML SDV ONE (07:19)
[2018-01-25] MEDS ORDERED: BUPIVACAINE HCL 0.25 % INJ/PF (2.5 MG/1 ML) 30 ML VIAL ONE (07:20)
[2018-01-25] MEDS ORDERED: CEFAZOLIN INJ 1 GM VIAL ONE (08:29)
[2018-01-25] MEDS ORDERED: FENTANYL CITRATE INJ/PF 100 MCG/2 ML AMPUL IV PRN ×2 (08:44)
[2018-01-25] MEDS ORDERED: PROMETHAZINE HCL INJ 25 MG/1 ML VIAL IV PRN ×2 (08:44)
[2018-01-25] MEDS ORDERED: DIPHENHYDRAMINE HCL 50 MG/ML VIAL IV PRN (08:44)
[2018-01-25] MEDS ORDERED: OXYCODONE-ACETAMINOPHEN 5-325 MG TABLET PO PRN ×2 (08:44)
[2018-01-25] MEDS ORDERED: MEPERIDINE HCL/PF INJ 25 MG/1 ML DISP.SYRIN IV PRN (08:44)
[2018-01-25] MEDS ORDERED: ONDANSETRON HCL INJ/PF 4 MG/2 ML SDV IV PRN (08:44)
[2018-01-25 09:50] LABS: ABSOLUTE BASOPHILS # (AUTO) 0.1 10^3/uL (0.0-0.2); ABSOLUTE EOSINOPHILS # (AUTO) 0.5 10^3/uL (0.0-0.6); ABSOLUTE LYMPHOCYTES (AUTO) 2.3 10^3/uL (0.5-4.7); ABSOLUTE MONOCYTES (AUTO) 0.9 10^3/uL (0.1-1.4); BASOPHILS % (AUTO) 1.1 % (0-2); EOSINOPHILS % (AUTO) 4.4 % (0-6); HEMATOCRIT 39.5 % (37.9-51.0); HEMOGLOBIN 13.6 g/dL (13.5-17.0); LYMPHOCYTES % (AUTO) 21.4 % (13-45); MEAN CORPUSCULAR HEMOGLOBIN 32.7 pg (27.0-33.4); MEAN CORPUSCULAR HGB CONC 34.5 g/dL (32.0-36.0); MEAN CORPUSCULAR VOLUME 95 fl (80-97); MONOCYTES % (AUTO) 8.6 % (3-13); PLATELET COUNT 188 10^3/uL (150-450); RED BLOOD COUNT 4.16 10^6/uL (4.35-5.55); RED CELL DISTRIBUTION WIDTH 12.7 % (11.5-14.0); SEGMENTED NEUTROPHILS % (AUTO) 64.5 % (42-78); TOTAL CELLS COUNTED % (AUTO) 100 %; WHITE BLOOD COUNT 10.9 10^3/uL (4.0-10.5)
[2018-01-25 10:12] LABS: ALANINE AMINOTRANSFERASE 94 U/L (21-72); ALBUMIN 3.4 g/dL (3.5-5.0); ALKALINE PHOSPHATASE 98 U/L (38-126); ANION GAP 9 (5-19); ASPARTATE AMINO TRANSFERASE 81 U/L (17-59); BILIRUBIN,DIRECT 0.3 mg/dL (0.0-0.4); BILIRUBIN,TOTAL 0.3 mg/dL (0.2-1.3); BLOOD UREA NITROGEN 17 mg/dL (7-20); CALCIUM 8.6 mg/dL (8.4-10.2); CARBON DIOXIDE 22 mmol/L (22-30); CHLORIDE 111 mmol/L (98-107); GLUCOSE 155 mg/dL (75-110); POTASSIUM 4.4 mmol/L (3.6-5.0); SODIUM 141.8 mmol/L (137-145); TOTAL PROTEIN 6.3 g/dL (6.3-8.2)
--- NOTE | 2018-01-25 10:38 | PDOC PROGRESS REPORT ---
Subjective Progress Note for:: 01/25/18 Subjective:: No new issues No pain Reason For Visit: PANCREATITIS, CHOLECYSTITIS Physical Exam Vital Signs: Temp Pulse Resp BP Pulse Ox 97.8 F 72 16 141/58 H 96 01/25/18 07:06 01/25/18 07:06 01/25/18 07:06 01/25/18 07:06 01/25/18 07:06 Intake & Output 01/24/18 01/25/18 01/26/18 06:59 06:59 06:59 Intake Total 2100 0 Output Total 0 Balance 2100 0 Weight 116 kg 115.8 kg General appearance: PRESENT: morbidly obese Respiratory exam: PRESENT: clear to auscultation robles Cardiovascular exam: PRESENT: +S1, +S2 GI/Abdominal exam: PRESENT: normal bowel sounds, soft Neurological exam: PRESENT: alert, awake, oriented to person, oriented to place , oriented to time, oriented to situation, CN II-XII grossly intact. ABSENT: motor sensory deficit Results Laboratory Results: 01/25/18 09:28 01/25/18 09:28 01/24/18 01/25/18 01/25/18 11:28 09:28 09:28 WBC 10.9 H RBC 4.16 L Hgb 13.6 Hct 39.5 MCV 95 MCH 32.7 MCHC 34.5 RDW 12.7 Plt Count 188 Seg Neutrophils % 64.5 Lymphocytes % 21.4 Monocytes % 8.6 Eosinophils % 4.4 Basophils % 1.1 Absolute Neutrophils 7.0 Absolute Lymphocytes 2.3 Absolute Monocytes 0.9 Absolute Eosinophils 0.5 Absolute Basophils 0.1 Sodium 141.3 141.8 Potassium 4.7 4.4 Chloride 108 H 111 H Carbon Dioxide 22 22 Anion Gap 11 9 BUN 18 17 Creatinine 0.95 0.98 Est GFR ( Amer) > 60 > 60 Est GFR (Non-Af Amer) > 60 > 60 Glucose 170 H 155 H Calcium 9.4 8.6 Total Bilirubin 0.4 0.3 AST 74 H 81 H ALT 107 H 94 H Alkaline Phosphatase 104 98 Total Protein 6.7 6.3 Albumin 3.9 3.4 L Lipase 83.0 165.0 Impressions: Abdomen Ultrasound 01/22/18 20:15 IMPRESSION: No shadowing gallstones identified. Mild sludge -nonshadowing stones. Normal wall thickness. No pericholecystic fluid.ULTRASOUND-DETECTED SHRESTHA'S SIGN: Reported positive Abdomen MRI 01/23/18 00:00 IMPRESSION: No gallstones. No biliary ductal dilatation. No pancreatic ductal dilatation. Few small pancreatic duct diverticuli or sacculations along the uncinate process, pancreatic body and tail. Assessment & Plan - Diagnosis (1) Acute biliary pancreatitis without infection or necrosis Is this a current diagnosis for this admission?: Yes - Plan Summary Plan Summary: He is scheduled for laparoscopic cholecystectomy today
[2018-01-25] MEDS: HYDROMORPHONE HCL INJ/PF 2 MG/ML AMPULE IV PRN (10:43)
[2018-01-25] MEDS ORDERED: MORPHINE SULFATE 10 MG/ML INJ ONE ×2 (10:50→13:05)
--- NOTE | 2018-01-25 10:59 | Operative Report ---
Operative Report DATE OF SURGERY: 01/25/18 PREOPERATIVE DIAGNOSIS: Gallstone Pancreatitis POSTOPERATIVE DIAGNOSIS: Gallstone Pancreatitis. Nodular Liver OPERATION: Laparoscopic Cholecystectomy. Laparoscopic core needle liver biopsy SURGEON: PATEL CHAVEZ ANESTHESIA: GA TISSUE REMOVED OR ALTERED: Gallbladder. Core needle liver biopsy COMPLICATIONS: none ESTIMATED BLOOD LOSS: 200 ml INTRAOPERATIVE FINDINGS: Nodular liver. Pericholecystic edema PROCEDURE: The patient was brought to the operating room and placed on the operating table. General endotracheal anesthesia was administered and he was positioned supine with both arms placed on arm boards. A time out was done. The abdomen was prepped with chloraprep and sterile drapes laid. Under sterile aseptic conditions, access to the peritoneal cavity was gained using the optical bladeless trocar technique with a 10mm port at the umbilicus. Pneumoperitoneum was insufflated to 15 mmHg. Three additional ports were placed, a 10mm midline subxiphoid port and two 5mm right subcostal ports, one in the midclavicular line and the other in the anterior axillary line. A fourth port had to be placed in the midline mid epigastrium as the patient's morbidly obese body habitus made the length of the camera inadequate for visualization of the surgical field with the camera port at the umbilicus; no long camera was available. There was more than average bleeding from the skin incisions during port placement and he had some visible abdominal veins. Initial laparoscopic inspection revealed a nodular liver and a decision was made to perform a liver biopsy as well at the end of the case. The gallbladder was first aspirated of 80 ml of green bile and then was grasped at the fundus with a grasper passed through the lateral right subcostal port. The infundibulum was grasped with a grasper passed through the medial right subcostal port. The Calot's triangle was dissected out to expose the cystic duct and artery with a critical view of safety displayed anteriorly and posteriorly. Again there was bleeding noted during dissection of the gallbladder. There were flimsy fibrous adhesions and edema in the Calot's triangle as well as around the gallbladder necessitating a careful dissection. The duct was clipped two times toward the patient side and singly clipped toward the gallbladder and transected between the clips. The artery was transected with the Ligasure. The gallbladder was then dissected off the liver bed with the Ligasure bipolar sealing device as well as the laparoscopic monopolar electrosurgical unit and retrieved from the peritoneal cavity in an endopouch. Hemostasis was secured so that at the completion of the cholecystectomy there was no active bleeding from the liver bed. Floseal was additionally sprayed over the liver bed. A laparoscopic core needle liver biopsy was then obtained. The umbilical and midepigastric port sites had the fascial layers closed with 0-prolene using the endoclosure device. The pneumoperitoneum was desufflated and all the ports removed. The skin incisions were closed with 4-0 monocryl subcuticular stitches. The wounds were infiltrated with local anesthesia, a 1:1 mixture of 1% lidocaine and 0.25% Bupivacaine, a total of 20 ml, they were cleaned and dressed with dermabond. The patient tolerated the procedure well, he was extubated in the operating room and taken to the PACU in stable condition.
[2018-01-25] MEDS: FENTANYL CITRATE INJ/PF 100 MCG/2 ML AMPUL IV PRN ×2 (11:05→11:20)
[2018-01-25] MEDS ORDERED: PROMETHAZINE HCL INJ 25 MG/1 ML VIAL ONE (11:06)
[2018-01-25] MEDS ORDERED: KETOROLAC TROMETHAMINE INJ/PF 30 MG/1 ML SDV ONE (11:06)
[2018-01-25] MEDS ORDERED: OXYCODONE-ACETAMINOPHEN 5-325 MG TABLET ONE ×2 (11:06→16:01)
[2018-01-25] MEDS ORDERED: FENTANYL CITRATE INJ/PF 100 MCG/2 ML AMPUL ONE ×2 (11:11→11:24)
[2018-01-25] MEDS: MORPHINE SULFATE 10 MG/ML INJ IV PRN ×2 (13:10→20:32)
[2018-01-25] MEDS: ENOXAPARIN SODIUM INJ 40 MG/0.4 ML DISP.SYRIN SUBCUT SCH (13:11)
[2018-01-25] MEDS: LISINOPRIL 10 MG TABLET PO SCH (13:12)
[2018-01-25] MEDS: CARVEDILOL 3.125 MG TABLET PO SCH ×2 (13:14→22:06)
[2018-01-25] MEDS: ATORVASTATIN CALCIUM 10 MG TABLET PO SCH (13:16)
[2018-01-25] MEDS: ONDANSETRON HCL INJ/PF 4 MG/2 ML SDV IV PRN (13:24)
[2018-01-25] MEDS: INSULIN REG, HUMAN 100 UNIT/ML 3 ML VIAL (PYX) SUBCUT PRN ×3 (13:29→23:56)
[2018-01-25] MEDS ORDERED: NEOSTIGMINE METHYLSULFATE 10 MG/10 ML VIAL ONE (13:32)
[2018-01-25] MEDS ORDERED: METOCLOPRAMIDE HCL INJ/PF 10 MG/2 ML SDV ONE (13:32)
[2018-01-25] MEDS ORDERED: ONDANSETRON HCL INJ/PF 4 MG/2 ML SDV ONE (13:32)
[2018-01-25] MEDS ORDERED: LIDOCAINE 2% INJ-PF (20 MG/ML) 2 ML AMPUL ONE (13:32)
[2018-01-25] MEDS ORDERED: DEXAMETHASONE SOD PHOSPHATE INJ 4 MG/1 ML VIAL ONE (13:32)
[2018-01-25] MEDS ORDERED: GLYCOPYRROLATE INJ 0.4 MG/2 ML VIAL ONE (13:32)
[2018-01-25] MEDS: OXYCODONE-ACETAMINOPHEN 5-325 MG TABLET PO PRN (23:56)
[2018-01-26] MEDS: OXYCODONE-ACETAMINOPHEN 5-325 MG TABLET PO PRN (08:27)
[2018-01-26] MEDS: INSULIN REG, HUMAN 100 UNIT/ML 3 ML VIAL (PYX) SUBCUT PRN (09:44)
[2018-01-26] MEDS: LISINOPRIL 10 MG TABLET PO SCH (09:44)
[2018-01-26] MEDS: ATORVASTATIN CALCIUM 10 MG TABLET PO SCH (09:44)
[2018-01-26] MEDS: CARVEDILOL 3.125 MG TABLET PO SCH (09:44)
[2018-01-26 11:19] LABS: ALANINE AMINOTRANSFERASE 367 U/L (21-72); ALKALINE PHOSPHATASE 136 U/L (38-126); ANION GAP 8 (5-19); ASPARTATE AMINO TRANSFERASE 362 U/L (17-59); BILIRUBIN,DIRECT 0.4 mg/dL (0.0-0.4); BILIRUBIN,TOTAL 0.6 mg/dL (0.2-1.3); BLOOD UREA NITROGEN 25 mg/dL (7-20); CALCIUM 8.2 mg/dL (8.4-10.2); CARBON DIOXIDE 23 mmol/L (22-30); CHLORIDE 106 mmol/L (98-107); GLUCOSE 362 mg/dL (75-110); POTASSIUM 4.4 mmol/L (3.6-5.0); SODIUM 136.6 mmol/L (137-145); TOTAL PROTEIN 5.3 g/dL (6.3-8.2)
[2018-01-26 11:24] VITALS: BP 141/70
--- NOTE | 2018-01-26 13:09 | DISCHARGE SUMMARY E ---
Discharge Summary NAME: REI WILSON : 1955 AGE: 62Y ADMITTED: 01/23/2018 DISCHARGED: 01/26/2018 SUMMARY OF HOSPITALIZATION: The patient is a 62-year-old obese white male who recently presented to [facility] and was evaluated by Dr. Morton and felt to have symptomatic cholelithiasis with cholecystitis. He was set up on an outpatient basis for interval laparoscopic cholecystectomy; however, he presented to the Emergency Department on 01/23/2018 complaining of acute abdominal pain. He was evaluated and found to have evidence of mild gallstone pancreatitis. He was admitted to the surgicalist service for definitive management. Past medical history and surgical history can be found in history and physical document. Patient was admitted to the surgicalist service, kept n.p.o. on IV fluids. His laboratory profile improved and he was taken to the operating room on 01/25/2018 where he underwent laparoscopic cholecystectomy by Dr. Gaviria. He tolerated the operation well, postoperatively had no complications. His diet was advanced and he tolerated this well. He was subsequently ready for discharge home. FINAL DIAGNOSES: 1. Symptomatic cholelithiasis with cholecystitis, status post laparoscopic cholecystectomy, Dr. Gaviria. 2. Multiple medical problems, stable. DISPOSITION: Patient was discharged home in the care of his family. Follow up with [facility] approximately 1 to 2 weeks. Take Toradol p.r.n. pain; resume preoperative medications, diet and activity. DICTATING PHYSICIAN: CHAGO MORTON M.D. [id number] PHY#: [id number] ID: [id number] JOB#: [id number] ACCT: [id number] cc:Mundo FOURNIER PA >
--- NOTE | 2018-02-13 13:01 | DISCHARGE SUMMARY E ---
Discharge Summary NAME: REI WILSON : 1955 AGE: 62Y ADMITTED: 01/23/2018 DISCHARGED: 01/26/2018 ADDENDUM: Regarding the patient's preoperative diagnosis of cholecystitis with cholelithiasis: Preoperatively, the patient had 2 imaging studies, a gallbladder ultrasound on an outpatient basis, and a gallbladder ultrasound in the emergency department on 01/22/2018, which showed sludge, non-shadowing gallstones. Therefore, preoperatively, the clinical diagnosis was chronic cholecystitis with cholelithiasis. The final pathology report showed chronic cholecystitis only. Therefore, in conclusion, only cholecystitis, chronic, was the patient's biliary tract diagnosis. This was a chronic cholecystitis. Regarding the patient undergoing an intraoperative needle biopsy by : This was based on an intraoperative observation of a macronodular liver. A biopsy was performed, which showed steatohepatitis nepro inflammatory grade 2 with fibrosis consistent with chronic liver fibrosis; also features of cholangitis and chronic hepatitis identified. ADDENDUM TO FINAL DISCHARGE SUMMARY: DIAGNOSES ADDENDUM AND CLARIFICATION: Chronic cholecystitis, cholangitis, steatohepatitis, and chronic hepatitis. DICTATING PHYSICIAN: CHAGO COMBS M.D. [id number] PHY#: [id number] ID: [id number] JOB#: [id number] ACCT: [id number] cc:CHAGO COMBS M.D., OVIE M.D >
== END 2018-01-26 11:46 | disposition home or self-care (01) | DRG 419 ==
LOC: ER 19:12 → EH 01-23 00:10 → 2N 01-23 01:55
PROVIDERS: ADMIT Surgery; ATTEND Surgery
PROC: 0FB04ZX Excision of Liver, Percutaneous Endoscopic Approach, Diagnostic (ICD-10-PCS; 2018-01-25)
PROC: 0FT44ZZ Resection of Gallbladder, Percutaneous Endoscopic Approach (ICD-10-PCS; principal; 2018-01-25 08:00)
DX: K85.10 Biliary acute pancreatitis without necrosis or infection (principal); K81.1 Chronic cholecystitis; K74.0 Hepatic fibrosis; K75.81 Nonalcoholic steatohepatitis (NASH); K75.9 Inflammatory liver disease, unspecified; E66.9 Obesity, unspecified; I25.10 Atherosclerotic heart disease of native coronary artery without angina pectoris; J44.9 Chronic obstructive pulmonary disease, unspecified; E11.9 Type 2 diabetes mellitus without complications; F31.9 Bipolar disorder, unspecified; Z68.36 Body mass index [BMI] 36.0-36.9, adult; Z87.891 Personal history of nicotine dependence; Z79.4 Long term (current) use of insulin; Z79.899 Other long term (current) drug therapy
CPT/HCPCS: 36415; 74181; 76705; 790; 80053; 82962; 83690; 84478; 85025; 85027; 85730; 86850; 86900; 86901; 87040; 88304; 88307; 88313; 93005; 93010; 96361; 96374; 96375; 96376; 99285; J0131; J0295; J0690; J1100; J1170; J1650; J1815; J1885; J2250; J2270; J2405; J2550; J2704; J2765; J3010; J3490; J7030

== ENCOUNTER → 2018-02-05 | Outpatient (CLI) | payer MEDICARE ==
[2018-02-06 08:41] LABS: HEPATITIS A AB IGM Negative (Negative); HEPATITIS B CORE AB IGM Negative (Negative); HEPATITS B SURFACE ANTIGEN Negative (Negative)
[2018-02-06 10:09] LABS: HEPATITIS C VIRUS ANTIBODY <0.1 s/co ratio (0.0-0.9)
== END ==
LOC: OD 09:55
PROVIDERS: ATTEND Physician Assistant Surgical
DX: K73.9 Chronic hepatitis, unspecified (principal); K75.9 Inflammatory liver disease, unspecified
CPT/HCPCS: 36415; 80074